=== PATIENT | male | born 1960 | race Caucasian/White ===

== ENCOUNTER 2020-08-03 00:52 | Inpatient (IN) | payer BC, SELFPAY ==
[2020-08-03] VITALS (38 sets, daily range): BP systolic 98–135; BP diastolic 7–95; PULSE 58–71; RESP 12–24; TEMP 36.4–36.9; O2SAT 91–100; BMI 30.8
--- NOTE | ~2020-08-03 | XR_ITS ---
EXAMINATION: XR chest 1V portable DATE: 08/03/2020 01:07 INDICATION: Chest pain. Shortness of breath. ST elevation myocardial infarction. TECHNIQUE: A single frontal view of the chest was obtained. COMPARISON: Chest 2 views 02/21/2015, CT chest 02/21/2015 FINDINGS: There is a diffuse interstitial pattern, consistent with mild pulmonary edema. No pleural e ffusion or pneumothorax. The heart size is normal. IMPRESSION: 1. Mild pulmonary edema. Reviewed, dictated and finalized at location A. IMPRESSION: 1. Mild pulmonary edema.
--- NOTE | 2020-08-03 00:46 | ED.CHESTPAIN ---
HPI - Chest Pain General Chief Complaint: Chest Pain Stated Complaint: CP Source: patient and EMS Mode of arrival: EMS Limitations: no limitations History of Present Illness HPI narrative: Patient is a 59-year-old who presents as a STEMI activation from the field. Patient reportedly with chest pain beginning shortly after midnight, took a full dose aspirin at home, symptoms did not improve, thus EMS was called, EKG done at the scene showed inferior STEMI with ST elevation with reciprocal changes with ST depression aVF in anterior leads. Patient was stable vital signs for transport. Patient presented to the ER awake, alert with stable vital signs, reporting that chest pain began approximately 40 minutes prior to arrival, described as pressure over the central of his chest with radiation into his middle back and bilateral arm pain. Patient states that he had walked into the kitchen, when suddenly the chest pain began causing him to feel sweaty with associated nausea. Patient reports smoking history and history of COPD. He reports family history of cardiac disease, he denies history of [place]. Related Data Allergies Allergy/AdvReac Type Severity Reaction Status Date / Time No Known Allergies Allergy Unknown Verified 07/21/20 16:00 Review of Systems Review of Systems: Narrative: CONSTITUTIONAL: Denies fever, chills, reports feeling diaphoretic CARDIOVASCULAR: Reports chest pain RESPIRATORY: Denies cough or dyspnea. GASTROINTESTINAL: Reports nausea GENITOURINARY: Denies dysuria or hematuria. SKIN: Denies rash or itching. MUSCULOSKELETAL: Reports middle back pain, joint pain, or myalgia. NEUROLOGIC: Denies headache, numbness, or weakness. . [facility] Past Medical History Medical History (Updated 08/03/20 @ 01:02 by Mona Temple MD) COPD (chronic obstructive pulmonary disease) Emphysema of lung Low HDL (under 40) Tobacco dependence Family History Family History Mother Cerebrovascular accident, Onset Age: 23 Patient's mother is Father Family history of heart disease in male family member before age 55, Onset Age: 42 Patient's father is Sibling Patient's brother is in good health Other Family history of arthritis Family history of cardiovascular disease Social History Social History Social History: Smoking packs per day: 1 Smoking cigarettes per day: 20.0 Years smoked: 41 Smoking pack-years: 41.00 Smoking status: Current every day smoker Tobacco type: cigarettes Second hand tobacco smoke exposure: Yes Alcohol intake: never Substance use: never Substance use type: does not use Gender identity (if verbalized by the patient): Male Spiritual care concerns: No Exam Narrative: Exam Narrative: GENERAL: Awake, alert, uncomfortable appearing HEAD: Normocephalic, atraumatic. EYES: PERRLA and EOMI. ENT: Nares clear, no rhinorrhea or epistaxis. Mucous membranes moist. NECK: Supple. CHEST: Mildly tachypneic, hyperventilating, no crackles, no wheezing HEART: Regular rate, sinus rhythm ABDOMEN:Non distended, non tender EXTREMITIES: Normal range of motion. No edema. SKIN: Warm, dry, no rash. NEURO:No focal deficits. Alert and oriented x3 Course Vital Signs Vital signs: Vital Signs Temperature 36.9 C 08/03/20 00:50 Pulse Rate 71 08/03/20 00:50 Respiratory Rate 24 H 08/03/20 00:50 Blood Pressure 135/90 08/03/20 00:50 Pulse Oximetry 98 08/03/20 00:50 Temperature 36.6 C 08/03/20 04:02 Pulse Rate 64 08/03/20 04:02 Respiratory Rate 20 08/03/20 04:02 Blood Pressure 111/71 08/03/20 04:02 Pulse Oximetry 93 08/03/20 04:02 MDM - Chest Pain MDM Narrative Medical decision making narrative: Patient presented to the emergency department as STEMI activation from the field with findings consistent with
--- NOTE | 2020-08-03 00:57 | ECG_ITS ---
Measurements Intervals [place] Rate: 76 P: 40 [place]: 165 QRS: 75 QRSD: 105 T: 91 QT: 336 QTc: 378 Interpretive Statements SINUS RHYTHM INCOMPLETE RIGHT BUNDLE BRANCH BLOCK INFERIOR ST ELEVATION MYOCARDIAL INFARCT- ACUTE POSTERIOR INFARCT, ACUTE BASELINE ARTIFACT- V3-V4 ABNORMAL ECG Electronically Signed On 08-03-2020 8:01:39 CDT by Hernán He D.O.
[2020-08-03 01:06] LABS: Basophils Absolute Auto 0.1 K/mm3 (0.0-0.1); Basophils Percent Auto 0.6 % (0.2-1.2); Eosinophils Absolute Auto 0.3 K/mm3 (0-0.3); Eosinophils Percent Auto 2.2 % (0-4.4); Hematocrit 48.8 % (42.0-52.0); Hemoglobin 16.7 g/dL (14.0-18.0); Immature Granulocyte Absolute 0.05 K/mm3 (0.00-0.031); Immature Granulocyte Percent A 0.3 % (0-0.5); Lymphocytes Absolute Auto 4.03 K/mm3 (0.9-3.2); Lymphocytes Percent Auto 25.7 % (18.3-44.2); Mean Corpuscular HGB Conc 34.2 g/dl (32-36); Mean Corpuscular Hemoglobin 31.7 pg (26-34); Mean Corpuscular Volume 92.8 fl (80-100); Mean Platelet Volume 11.4 fl (7.4-10.4); Monocytes Absolute Auto 0.8 K/mm3 (0.1-0.6); Neutrophils Absolute Auto 10.4 K/mm3 (1.3-6.7); Neutrophils Percent Auto 66.2 % (45.5-73.1); Platelet Count Result 290 k/mm3 (150-375); Red Blood Count 5.26 M/mm3 (4.6-6.20); Red Cell Distribution Width 12.9 % (11.5-14.5); White Blood Count 15.7 K/mm3 (4.5-10.0)
--- NOTE | 2020-08-03 01:07 | PC.NURSE ---
4mg zofran given 0053 4000 units heparin bolus given 0054 2mg morphine given 0056 2mg morphine given 0058
--- NOTE | 2020-08-03 01:15 | PC.NURSE ---
4mg more of morphine given at this time per md verbal orders due to pain 02/23
--- NOTE | 2020-08-03 01:22 | PC.NURSE ---
labs sent down on patient due to lab unreceiving first set.
[2020-08-03 01:37] LABS: INR 1.1; Prothrombin Time 13.7 Seconds (11.1-14.7)
[2020-08-03 01:38] LABS: Partial Thromboplastin Time 69.5 SECONDS (22.3-36.8)
[2020-08-03 01:41] LABS: Alanine Aminotransferase 18 U/L (4-50); Alkaline Phosphatase 104 U/L (38-126); Anion Gap 7 mmol/L (8-16); Aspartate Amino Transferase 32 U/L (17-59); Bilirubin,Total 0.5 mg/dL (0.2-1.3); Blood Urea Nitrogen 17 mg/dL (9-20); Calcium 9.2 mg/dL (8.4-10.2); Carbon Dioxide 26 mmol/L (22-30); Chloride 103 mmol/L (98-107); Cholesterol 139 mg/dL (0-200); Estimated Glomerular Filt Rate > 60; Glucose 141 mg/dL (75-110); HDL Direct 30 mg/dL; Sodium 136 mmol/L (137-145); Triglycerides 215 mg/dL (<150)
[2020-08-03 01:53] LABS: LDL Cholesterol Direct 88 mg/dL
--- NOTE | 2020-08-03 02:22 | WPDCARDPROC ---
Cardiac Cath Procedure Note Date of procedure:: 08/03/20 Performing physician:: Garrick Santoyo MD Indication:: acute inferior wall infarction Brief clinical history:: 59-year-old man presenting in the middle of the night with ischemic chest pain that began at home awakening him from sleep. ECG in the field was diagnostic of acute inferior wall a.m. MO. STEMI protocol was activated. No previous cardiac history Procedure Procedure performed:: emergency coronary angiography emergency PCI to proximal RCA left ventriculography Sedation/Medication given:: no additional sedation given in the seed laboratory assistant Access site:: right femoral artery Estimated blood loss:: 15-20 cc Procedure note:: patient was brought to the cardiac catheterization lab in the emergency setting described above. The right femoral triangle was prepared in the usual fashion. Lidocaine was injected locally for a anesthesia. The right femoral artery was then punctured using the modified Seldinger technique and a 6 Moldovan vascular sheath was placed. After this I used a 5 Moldovan FL4 catheter to engage inject the left coronary artery in multiple projections. After this a 6 Moldovan JR4 guiding catheter was used to inject the right coronary artery. Following this PCI of the right coronary artery was carried out as detailed below. Prior to PCI the patient received Brilinta 180 mg and was given a bolus and infusion of Angiomax for systemic anticoagulation. During the procedure I also elected to start Integrilin with double bolus and maintenance IV infusion. The patient following this underwent PCI of the RCA successfully. The left ventricle was then injected and left-sided hemodynamics were documented using a 5 Moldovan angled pigtail catheter. At the end of the procedure the sheath was sutured into position the patient was taken down to the ICU in stable condition Findings:: the left ventricle is modestly enlarged the mid to basal segments of the inferior wall are akinetic the global ejection fraction is 45% the left main coronary artery is widely patent the left anterior descending is a wbgnqsnh-[id number]-edtya caliber vessel smooth and angiographically no normal down to the apex including its branches. The circumflex is a large caliber vessel giving rise to marginal branches which are smooth and angiographically normal, somewhat tortuous right coronary artery is a large artery dominant to the posterior circulation which is 100% occluded in the 1st portion about 10 mm after the ostium. The RCA was engaged using the 6 Moldovan JR4 guiding catheter. A 0.014 BMW wire was used to cross the occlusion and the wire advanced into the distal RCA in artery out into the RPL system. I then pre-dilated the vessel with a 2.5 x 20 mm emerge PTCA balloon followed by 3.5 x 20 mm emerge balloon. After this the vessel was patent but the area of disease was relatively long with CAROL 3 flow into the distal RCA. There was angiographic evidence of visible thrombus embolizing from the site of the target lesion distally into the PDA and PL branches. Following this I deployed a 4 x 30 mm Orsiro drug-eluting stent at the site of the target lesion covering the entire area of disease with some overlap proximally and distally. At the end of the stent plan the proximal RCA was widely patent no residual stenosis disruption dissection. at the end of the procedure for several minutes the patient did have asymptomatic accelerated idioventricular rhythm which resolved without treatment Conclusion:: 1. Acute inferior wall myocardial infarction due to abrupt thrombotic occlusion of the large dominant RCA 2. non disease left coronary artery 3. large area of infero posterior akinesia and global ejection fraction 45% 4. successful PCI of the RCA occlusion with balloon pre dilatation and then deployment of a 4 x 30 mm Orsiro drug-eluting stent with a nice anatomical result 5. distal thrombus embolization to the RPD
--- NOTE | 2020-08-03 02:31 | PM.IMHP ---
H&P: HPI History of Present Illness Date/Time: 08/03/20 02:31 Chief complaint: STEMI Narrative: Meek Owens is a 59 year old male without previous significant cardiac history who presents this evening with an acute inferior wall infarction. The patient was asleep in bed and was awakened with retrosternal pressure-like chest pain. He recognized this is probably a serious matter and took a dose of aspirin in the at home and called 911. ECG in the field was diagnostic of an acute inferior wall infarction. Patient reports no previous history of exertional chest pain prior to this. He reports some evidence of dyslipidemia and a family history of premature coronary disease in his father and paternal grandfather Review of Systems Review of Systems: ROS unobtainable: Yes unobtainable due to medical condition PMFSH Past Medical History Medical History (Updated 08/03/20 @ 01:02 by Mona Temple MD) COPD (chronic obstructive pulmonary disease) Emphysema of lung Low HDL (under 40) Tobacco dependence Family History Family History Mother Cerebrovascular accident, Onset Age: 23 Patient's mother is Father Family history of heart disease in male family member before age 55, Onset Age: 42 Patient's father is Sibling Patient's brother is in good health Other Family history of arthritis Family history of cardiovascular disease Social History Social History Social History: Smoking packs per day: 1.5 Smoking cigarettes per day: 30.0 Smoking status: Current every day smoker Tobacco type: cigarettes Second hand tobacco smoke exposure: Yes Alcohol intake: never Substance use: never Substance use type: does not use Gender identity (if verbalized by the patient): Male Meds Home Medications and Allergies Home Medications Medication Instructions Recorded Confirmed Type varenicline 0.5 mg (11)-1 mg (42) See Rx Instructions PO PER PKG DIR 07/14/20 07/29/20 Rx tablets in a dose pack #53 each Allergies Allergy/AdvReac Type Severity Reaction Status Date / Time No Known Allergies Allergy Unknown Verified 07/21/20 16:00 Vital Signs Vital Signs - 24 hr 08/03/20 00:50 08/03/20 01:14 08/03/20 01:24 Temperature 36.9 C Pulse Rate 71 69 65 Respiratory Rate 24 H 13 12 Blood Pressure 135/90 129/89 129/89 Pulse Oximetry 98 94 99 Exam Const: General: in distress and uncomfortable Other: 59-year-old man reporting 9/10 chest pain HENMT: Mouth: Yes moist mucous membranes Eyes: Sclera: sclerae normal Pupils: Equal, round and reactive pupils present Neck: Neck: supple and no JVD Thyroid: thyroid normal Resp: Effort & Inspection: normal respiratory effort Auscultation: clear to auscultation bilaterally Cardio: Rate: regular rate Rhythm: regular rhythm Other: S4 is evident GI: GI Palp: Yes Soft to palpation Auscultation: normal bowel sounds Skin: General skin exam: normal color Neuro: Cognition (Neuro): normal cognition Extrem: General: normal to inspection Psych: Mental Status: mental status grossly normal H&P: Results Labs Labs: Short CBC 08/03/20 Range/Units 01:00 WBC 15.7 H (4.5-10.0) K/mm3 Hgb 16.7 (14.0-18.0) g/dL Hct 48.8 (42.0-52.0) % Plt Count 290 (150-375) k/mm3 BMP 08/03/20 08/03/20 01:00 01:21 Sodium Cancelled 136 L Potassium Cancelled 4.0 Chloride Cancelled 103 Carbon Dioxide Cancelled 26 BUN Cancelled 17 Creatinine Cancelled 1.00 Glucose Cancelled 141 H Calcium Cancelled 9.2 Cardiac Enzymes 08/03/20 Range/Units 01:00 Troponin I 1.950 H* (0.000-0.034) ng/mL Liver Function 08/03/20 08/03/20 Range/Units 01:00 01:21 Total Bilirubin Cancelled 0.5 AST Cancelled 32 ALT Cancelled 18 Alkaline Phosphatase
--- NOTE | 2020-08-03 02:40 | ADMGEN ---
This patient, Meek Owens, was admitted to Intensive Care Unit-9. Patient/family oriented to hospital policies and general routines including ID bracelet, bed and alarms, visiting hours, pain management, procedures, bathroom and other care routines, personal items, smoking policy, room service/diet, and visiting hours. Information on how to activate the Rapid Response Team has been discussed. Patient/Family are encouraged to report perceived risks to care and to ask questions if they do not understand what they are told or what they should do.
--- NOTE | 2020-08-03 02:44 | ECG_ITS ---
Measurements Intervals [place] Rate: 67 P: 61 ME: 162 QRS: 31 QRSD: 102 T: -31 QT: 371 QTc: 393 Interpretive Statements SINUS RHYTHM INCOMPLETE RIGHT BUNDLE BRANCH BLOCK INFERIOR MYOCARDIAL INFARCTION, PROBABLY RECENT BASELINE ARTIFACT- V4 ABNORMAL ECG Electronically Signed On 08-03-2020 13:24:53 CDT by Hernán He D.O.
[2020-08-03] MEDS: SODIUM CHLORIDE 0.9% IV 1,000 ML 125 ML IV CONT (04:11)
[2020-08-03] MEDS: EPTIFIBATIDE 0.75 MG/ML 75 MG/100 ML VIAL 17.4 MG IV CONT ×3 (07:16→19:13)
[2020-08-03] MEDS: MORPHINE SULFATE (*CRX) 2 MG/ML INJ IV PUSH (07:37)
[2020-08-03] MEDS: METOPROLOL TARTRATE 25 MG TABLET PO ×2 (08:13→20:22)
[2020-08-03] MEDS: ASPIRIN 81 MG CHEWABLE TABLET PO (08:13)
[2020-08-03] MEDS: LOSARTAN POTASSIUM 12.5 MG TABLET PO (08:13)
[2020-08-03] MEDS: ROSUVASTATIN 10 MG TABLET 20 MG PO (08:14)
[2020-08-03] MEDS: TICAGRELOR 90 MG TABLET PO ×2 (08:14→20:22)
[2020-08-03] MEDS: LIDOCAINE 5% PATCH 1 PATCH TRANSDERM (08:41)
--- NOTE | 2020-08-03 09:30 | WPDCNINT ---
Assessment and Plan Assessment and plan (1) ST elevation (STEMI) myocardial infarction: Code(s): I21.3 - ST elevation (STEMI) myocardial infarction of unspecified site Status: Acute Assessment and Plan: patient presented with chest pain, EMS alerted a code STEMI, patient was taken emergently to the wastewater analyst lab analyst where he was found 100% occlusion of the 1st part of the RCA, status post RIN x1. EF 45% with akinetic inferior wall - patient currently on interrogated infusion for 18 hours - continue metoprolol, Brilinta, rosuvastatin, metoprolol, losartan (2) COPD (chronic obstructive pulmonary disease): Code(s): J44.9 - Chronic obstructive pulmonary disease, unspecified Status: Acute Assessment and Plan: p.r.n. bronchodilators (3) Tobacco dependence: Code(s): F17.200 - Nicotine dependence, unspecified, uncomplicated Status: Acute Assessment and Plan: discussed patient regarding tobacco abuse and counseled on cessation Additional Plan discussed with patient and updated with his condition and plan of care. I ordered morphine and Tylenol for his back pain along with lidocaine patch. code status: Full code critical care time spent: 42 Minutes Due to a high probability of clinically significant, life threatening deterioration, the patient required my highest level of preparedness to intervene emergently and I personally spent this critical care time directly and personally managing the patient. This critical care time included obtaining a history; examining the patient; pulse oximetry; ordering and review of studies; arranging urgent treatment with development of a management plan; evaluation of patient's response to treatment; frequent reassessment; and discussions with other providers. It was exclusive of separately billable procedures and treating other patients and teaching time. Please see Assessment and Plan section and the rest of the note for further information on patient assessment and treatment Sample Color Maker Consult Note Consult date: 08/03/20 Time Seen: 06:58 Reason for consult: STEMI with acute inferior wall infarction status post RIN x1 to RCA HPI: Meek Owens is a 59 year old male with past medical history of COPD, tobacco dependence, low HDL presented the ED with complains of chest pain associated with nausea, shortness of breath and radiation into his middle back in bilateral upper arms. Patient also was diaphoretic. Patient called EMS an EKG showed inferior ST elevation with reciprocal changes. patient was taken to the wastewater analyst lab analyst where he was found to have 100% occlusion in the 1st portion. Status post RIN x1 to the lesion in RCA. EF was 45% with akinesis of the inferior wall. Patient was transferred the ICU on Integrilin infusion patient seen and examined this morning, complains of back pain, just uncomfortable laying on his back. Patient is on Integrilin infusion. Hemodynamically stable, adequate urine output, afebrile. Patient denies any chest pain, shortness of breath, abdominal pain, nausea Or vomiting. Patient smokes packet per day, denies any alcohol or illicit drug use Review of Systems Review of Systems: All systems reviewed & are unremarkable except as noted in HPI and below PMFSH Past Medical History Medical History (Updated 08/03/20 @ 01:02 by Mona Temple MD) COPD (chronic obstructive pulmonary disease) Emphysema of lung Low HDL (under 40) Tobacco dependence Family History Family History Mother Cerebrovascular accident, Onset Age: 23 Patient's mother is Father Family history of heart disease in male family member before age 55, Onset Age: 42 Patient's father is Sibling Patient's brother is in good health Other Family history of arthritis Family history of cardiovascular disease Social History Social History (Reviewed
[2020-08-03] MEDS: ACETAMINOPHEN 500 MG TABLET 1000 MG PO ×2 (12:47→23:17)
--- NOTE | 2020-08-03 21:59 | PC.NURSE ---
This patient, Meek Owens, was transferred to [[id number] ] on 08/03/20 at 2145. Personal belongings sent with patient. Report given to [Jen. Baker ]. Appropriate documentation sent with patient.
--- NOTE | 2020-08-03 22:43 | PC.NURSE ---
This patient, Meek Owens, was received from ICU-9 on 08/03/20 at 2145. Personal belongings list checked and signed. Patient/family oriented to unit policies and routines
[2020-08-04] VITALS (19 sets, daily range): BP systolic 99–127; BP diastolic 56–80; PULSE 54–86; RESP 18–98; TEMP 35.7–36.6; O2SAT 20–98
--- NOTE | 2020-08-04 05:11 | ECG_ITS ---
Measurements Intervals [place] Rate: 64 P: 71 DC: 147 QRS: -24 QRSD: 101 T: -58 QT: 420 QTc: 434 Interpretive Statements SINUS RHYTHM INCOMPLETE RIGHT BUNDLE BRANCH BLOCK INFERIOR MYOCARDIAL INFARCTION, PROBABLY RECENT BASELINE WANDER- II, III, V2 ABNORMAL ECG Electronically Signed On 08-04-2020 8:58:13 CDT by Hernán He D.O.
[2020-08-04 05:25] LABS: Basophils Percent Auto 0.3 % (0.2-1.2); Eosinophils Absolute Auto 0.2 K/mm3 (0-0.3); Eosinophils Percent Auto 2.7 % (0-4.4); Hematocrit 45.1 % (42.0-52.0); Hemoglobin 15.2 g/dL (14.0-18.0); Immature Granulocyte Absolute 0.02 K/mm3 (0.00-0.031); Immature Granulocyte Percent A 0.2 % (0-0.5); Lymphocytes Absolute Auto 2.73 K/mm3 (0.9-3.2); Lymphocytes Percent Auto 30.7 % (18.3-44.2); Mean Corpuscular HGB Conc 33.7 g/dl (32-36); Mean Corpuscular Hemoglobin 30.7 pg (26-34); Mean Corpuscular Volume 91.1 fl (80-100); Mean Platelet Volume 11.5 fl (7.4-10.4); Monocytes Absolute Auto 0.6 K/mm3 (0.1-0.6); Monocytes Percent Auto 6.4 % (2.6-8.5); Neutrophils Absolute Auto 5.3 K/mm3 (1.3-6.7); Neutrophils Percent Auto 59.7 % (45.5-73.1); Platelet Count Result 245 k/mm3 (150-375); Red Blood Count 4.95 M/mm3 (4.6-6.20); Red Cell Distribution Width 12.8 % (11.5-14.5); White Blood Count 8.9 K/mm3 (4.5-10.0)
[2020-08-04 05:57] LABS: Anion Gap 6 mmol/L (8-16); Blood Urea Nitrogen 10 mg/dL (9-20); Carbon Dioxide 27 mmol/L (22-30); Chloride 108 mmol/L (98-107); Estimated CRCL calculation 119 ml/min; Estimated Glomerular Filt Rate > 60; Glucose 97 mg/dL (75-110); Magnesium 2.1 mg/dL (1.6-2.3); Phosphorus 3.1 mg/dL (2.5-4.5); Potassium 3.9 mmol/L (3.4-5.0); Sodium 141 mmol/L (137-145)
[2020-08-04] MEDS: METOPROLOL TARTRATE 25 MG TABLET PO ×2 (10:28→20:05)
[2020-08-04] MEDS: ASPIRIN 81 MG CHEWABLE TABLET PO (10:28)
[2020-08-04] MEDS: ROSUVASTATIN 10 MG TABLET 20 MG PO (10:28)
[2020-08-04] MEDS: TICAGRELOR 90 MG TABLET PO ×2 (10:28→20:05)
[2020-08-04] MEDS: LOSARTAN POTASSIUM 12.5 MG TABLET PO (10:29)
--- NOTE | 2020-08-04 10:47 | PM.PNCARD ---
Progress Note: A&P Assessment and Plan (1) ST elevation (STEMI) myocardial infarction: Code(s): I21.3 - ST elevation (STEMI) myocardial infarction of unspecified site Status: Acute Assessment and Plan: 08/03/2020 cardiac catheterization: Acute inferior wall myocardial infarction due to abrupt thrombotic occlusion of the large dominant RCA Non disease left coronary artery. Large area of infero posterior akinesia and global ejection fraction 45%. Proceeded on to successful PCI of the RCA occlusion with balloon pre dilatation and then deployment of a 4 x 30 mm Orsiro drug-eluting stent with a nice anatomical result. Distal thrombus embolization to the RPDA and RPL branches following recanalization lutheran of flow in the proximal RCA. He received intravenous Integrilin as well as an additional bag of Angiomax following this PCI for this reason. At the end of the procedure he had several minutes of asymptomatic accelerated idioventricular rhythm which resolved without treatment No complaints of any chest discomfort. Denied shortness of breath or lightheadedness. Has been up in room. Right groin site without swelling or bleeding. No femoral bruit. Distal pulses intact. Telemetry revealed a 5 beat run of idioventricular rhythm 08/04/2020 at 01:09. Otherwise having occasional PVCs. Potassium 3.9. Magnesium 2.1. Continue aspirin, Brilinta, Rosuvastatin, Metoprolol tartrate and losartan. Discussion regarding his cholesterol numbers. He also had this drawn 07/17/2020. Results: Total cholesterol 125, triglyceride 72, HDL 35, LDL calculated 75. The cholesterol drawn at 0121 08/03/2020 was not a full 12 hour fasting specimen. Will get echo to evaluate LV function post intervention. If remains stable anticipate discharge tomorrow. (2) Tobacco dependence: Code(s): F17.200 - Nicotine dependence, unspecified, uncomplicated Status: Acute Assessment and Plan: smoking cessation discussed. Additional Plan Increase ambulation. Plan discussed with Dr. Santoyo [id number] 08/04/2020 Subjective Date/time seen: 08/04/20 10:47 Interval history: Follow-up for: Inferior ST-elevation myocardial infarction Date of service: 08/04/2020 Subjective: Denied chest discomfort, shortness of breath, lightheadedness or palpitations. Disappointed that he is not going home today. Review of Systems Constitutional: Constitutional: Denies fatigue, Denies lethargy and Denies weakness Eyes: Eyes: Denies blind spots and Denies blurry vision ENT: Reports Normal hearing present and Denies dizziness Cardiovascular: Cardiovascular: Denies leg edema, Denies lightheadedness, Denies dyspnea, Denies dyspnea on exertion, Denies orthopnea and Denies paroxysmal nocturnal dyspnea Respiratory: Respiratory: Denies cough, Denies dyspnea, Denies dyspnea on exertion and Denies wheezing Musculoskeletal: Musculoskeletal: Reports back pain ( Chronic) and Denies neck pain Integumentary/Breasts: Skin/Breast: Denies erythema, Denies rash and Denies unusual bruising Neurologic: Denies Abnormal speech present and Denies headache(s) Psychiatric: Psychiatric: Denies anxiety and Denies depression Endocrine: Endocrine: Denies fatigue Hematologic/Lymphatic: Hematologic/Lymphatic: Denies easy bleeding and Denies easy bruising Allergic/Immunologic: Allergic/Immunologic: Denies throat swelling and Denies wheezing Exam Const: General: cooperative and comfortable Nutritional Appearance: overweight Orientation/consciousness: patient oriented x3 Limitations: no limitations HENMT: Mouth: Yes moist mucous membranes Eyes: Sclera: sclerae normal Pupils: Equal, round and reactive pupils present Neck: Neck: supple and no JVD Resp: Effort & Inspection: normal respiratory effort Auscultation: crackles ( bilateral bases left greater than right) Cardio: Rate: regular rate Rhythm: regular rhythm Other: S4
--- NOTE | 2020-08-04 12:00 | ECHO_ITS ---
Patient Info Name: Meek Owens Age: 59 years : 1960 Gender: Male Ht: 74 in Wt: 249 lbs BSA: 2.46 m2 HR: 60 bpm BP: 119 / 70 mmHg Heart Rhythm: Sinus Rhythm Technical Quality: Good Exam Date: 08/04/2020 11:47 AM Exam Location: [facility] Patient Status: Inpatient Admit Date: 08/03/2020 Staff Ordering Physician: Tita Aponte APRN It Generalist: Chris Weber RDCS Attending Provider: Garrick Santoyo MD Referring Physician: Fadi REDD; Exam Type: CA echo doppler color flow Study Info Indications I22.1 - Subsequent ST elevation (STEMI) myocardial infarction of inferior wall Complete two-dimensional, color flow and Doppler transthoracic echocardiogram is performed. Strain analysis performed. History/Risk Factors STEMI; COPD, mild pulmonary edema, chest pain. Summary 1. Complete two-dimensional, color flow and Doppler transthoracic echocardiogram is performed. 2. Left ventricular chamber dimension is normal. 3. Left ventricular systolic function is mildly reduced, estimated at 45-50%. 4. The inferior wall is severely hypodynamic but not akinetic. 5. No valve lesions seen. Left Ventricle Left ventricular chamber dimension is normal. Left ventricular systolic function is mildly reduced, estimated at 45-50%. The left ventricular diastolic function is normal. The inferior wall is severely hypodynamic but not akinetic. Right Ventricle Right ventricular chamber dimension is normal. Left Atria Left atrial chamber dimension is normal. Right Atria Right atrial chamber dimension is normal. Aortic Valve The aortic valve is normal. Pulmonic Valve The pulmonic valve is not well visualized. Mitral Valve The mitral valve has normal leaflets. Tricuspid Valve The tricuspid valve leaflets are normal. Pericardium/Pleural The pericardium appears normal. Aorta The aortic root size at the sinus of Valsalva is normal. Left Ventricular Outflow Tract Name Value Normal LVOT 2D LVOT Diameter 2.0 cm LVOT Doppler LVOT Peak Gradient 3 mmHg LVOT Mean Gradient 1 mmHg LVOT VTI 16 cm LVOT VTI/AV VTI Ratio 0.9 LVOT Stroke Volume 50 ml LVOT CO 2.8 l/min LVOT CI 1.1 l/min/m2 Mitral Valve Name Value Normal MV Doppler MV Decel [place] 138 cm/s2 MV PHT 108 ms MV Area (PHT) 2.0 cm2 4.0-5.0 MV Diastolic Function MV E Peak Velocity 51 cm/s MV A Peak Velocity 56 cm/s MV E/A
--- NOTE | 2020-08-04 20:13 | PC.NURSE ---
This patient, Meek Owens, was transferred to [[id number] ] on 08/04/20 at 2013. Personal belongings sent with patient. Report given to [Brigida daniel]. Appropriate documentation sent with patient.
--- NOTE | 2020-08-04 20:21 | PC.NURSE ---
RECEIVED PT PER WHEELCHAIR FROM IMU.
[2020-08-04] MEDS: ACETAMINOPHEN 500 MG TABLET 1000 MG PO (20:23)
[2020-08-05] VITALS: BP 98/45; PULSE 53; PULSE 54; RESP 22; TEMP 36.6; O2SAT 100
[2020-08-05 04:00] VITALS: BP 110/68; PULSE 54; PULSE 63; RESP 22; TEMP 36.6; O2SAT 100
[2020-08-05 08:00] VITALS: PULSE 64
[2020-08-05] MEDS: ASPIRIN 81 MG CHEWABLE TABLET PO (09:00)
[2020-08-05 09:01] VITALS: PULSE 68
[2020-08-05] MEDS: METOPROLOL TARTRATE 25 MG TABLET PO (09:01)
[2020-08-05] MEDS: LOSARTAN POTASSIUM 12.5 MG TABLET PO (09:01)
[2020-08-05] MEDS: ROSUVASTATIN 10 MG TABLET 20 MG PO (09:01)
[2020-08-05] MEDS: TICAGRELOR 90 MG TABLET PO (09:02)
[2020-08-05 09:15] VITALS: BP 117/94; PULSE 64; RESP 20; TEMP 36.6; O2SAT 94
--- NOTE | 2020-08-05 09:25 | PM.DS ---
DS: Admitting Diagnosis Admitting Diagnosis Admitting Diagnosis: STEMI DS: Discharge Diagnosis Discharge Diagnosis (1) ST elevation (STEMI) myocardial infarction: Code(s): I21.3 - ST elevation (STEMI) myocardial infarction of unspecified site Status: Acute Assessment and Plan: 08/03/2020 cardiac catheterization: Acute inferior wall myocardial infarction due to abrupt thrombotic occlusion of the large dominant RCA Non disease left coronary artery. Large area of infero posterior akinesia and global ejection fraction 45%. Proceeded on to successful PCI of the RCA occlusion with balloon pre dilatation and then deployment of a 4 x 30 mm Orsiro drug-eluting stent with a nice anatomical result. Distal thrombus embolization to the RPDA and RPL branches following recanalization amish of flow in the proximal RCA. He received intravenous Integrilin as well as an additional bag of Angiomax following this PCI for this reason. At the end of the procedure he had several minutes of asymptomatic accelerated idioventricular rhythm which resolved without treatment Feeling well. Denied chest discomfort, shortness of breath, lightheadedness or palpitations has been up and ambulating in the halls as well as in his room. 5 beat run of nonsustained ventricular tachycardia which was asymptomatic. Echocardiogram 08/04/2020:Left ventricular chamber dimension is normal. Left ventricular systolic function is mildly reduced, estimated at 45-50%. The inferior wall is severely hypodynamic but not akinetic. No valve lesions seen. (2) Tobacco dependence: Code(s): F17.200 - Nicotine dependence, unspecified, uncomplicated Status: Acute Assessment and Plan: Smoking cessation discussed. Can resume Chantix if desired. DS: Summary Hospital Course Reason for hospitalization: chest pain STEMI -inferior Hospital Course: 59-year-old male that presented to the hospital via EMS with inferior ST-elevation myocardial infarction. He was taken emergently to the cardiac catheterization lab by Dr. Santoyo. PCI was performed of the right coronary artery. At the end of the procedure he had idioventricular rhythm that was self-limiting. He was started on aspirin, Brilinta, losartan, metoprolol tartrate and rosuvastatin. The cholesterol panel that was drawn at the time of his admission was not a good 12 hour fasting from his evening meal. He was monitored in the ICU and then transferred to the IMU. He had one 5 beat run of idioventricular rhythm. Right groin site without swelling or bleeding. No femoral bruit. Distal pulses intact. The lipid panel from 07/16/2020 was reviewed with him. Blood pressure is soft but he is tolerating Metoprolol tartrate 25 mg every 12 hours as well as losartan 12.5 mg daily. He has had no chest discomfort, shortness of breath, lightheadedness or palpitations. He has been ambulating in the [place] as well as up in his room. Echocardiogram 08/04/2020 reveals ejection fraction 45-50% with severely hypo dynamic but not akinetic inferior wall. He had one 5 beat run of nonsustained ventricular tachycardia that was not symptomatic. Due to soft blood pressure and heart rate not able to increase his beta-herson any further. He was given the discount card for the Brilinta. He was discharged home in stable and pain-free condition. Discharge was reviewed with Dr. Santoyo. Time spent discussing smoking cessation with patient: 3 to 10 minutes Time Spent with Patient Time attestation: Total time spent providing and/or coordinating discharge services: 25 minutes in the room discussing medications, activity restrictions, results of the echocardiogram and what ejection fraction is, follow-up in the office and exam. 10 minutes to do discharge orders. 10 minutes to do discharge summary. Total time: 45 minutes Exam Const: General: coop
== END 2020-08-05 11:08 | disposition home or self-care (01) | DRG 247 ==
LOC: ANHED 00:55 → ANHICU 01:13 → ANHIMU 21:45 → ANH2MED 08-04 20:14
PROVIDERS: Internal Medicine; Admitting Provider Specialist; Emergency Provider Emergency Medicine; PCP Family Medicine; Visit Provider Nurse Practitioner Adult Health
PROC: 4A023N7 Measurement of Cardiac Sampling and Pressure, Left Heart, Percutaneous Approach (ICD-10-PCS; CPT 93452; principal; 2020-08-03 01:10)
PROC: 027034Z Dilation of Coronary Artery, One Artery with Drug-eluting Intraluminal Device, Percutaneous Approach (ICD-10-PCS; 2020-08-03 01:10)
DX: I21.19 ST elevation (STEMI) myocardial infarction involving other coronary artery of inferior wall (principal); J43.9 Emphysema, unspecified; Z20.828 Contact with and (suspected) exposure to other viral communicable diseases; F17.210 Nicotine dependence, cigarettes, uncomplicated; Z23 Encounter for immunization
CPT/HCPCS: 36415; 71045; 80048; 80053; 80061; 83735; 84100; 84484; 85025; 85610; 85730; 86850; 86900; 86901; 90471; 90653; 93005; 93306; 93458; 96374; 96375; 99291; A9270; C1725; C1874; C1887; C9606; G0008; J0583; J1327; J1644; J2250; J2270; J2405; J3010; J7030; J7040

== ENCOUNTER → 2020-08-25 08:54 | Outpatient (REF) | payer BC, SELFPAY | LOC: ANHLAB 08:54 | PROVIDERS: PCP Family Medicine; Visit Provider Nurse Practitioner | DX: C44.529 Squamous cell carcinoma of skin of other part of trunk (principal) | CPT/HCPCS: 88305; 88331 ==

== ENCOUNTER → 2021-09-14 13:59 | Outpatient (REF) | payer BC, SELFPAY | LOC: ANHLAB 13:59 | PROVIDERS: PCP Family Medicine; Visit Provider Nurse Practitioner | DX: C44.519 Basal cell carcinoma of skin of other part of trunk (principal) | CPT/HCPCS: 88305 ==

== ENCOUNTER → 2021-11-09 07:06 | Outpatient (REF) | payer BC, SELFPAY | LOC: ANHLAB 07:06 | PROVIDERS: PCP Family Medicine; Visit Provider Nurse Practitioner | DX: C44.519 Basal cell carcinoma of skin of other part of trunk (principal) | CPT/HCPCS: 88305; 88331 ==

== ENCOUNTER 2022-02-19 12:55 | Outpatient (CLI) | payer BC, SELFPAY ==
--- NOTE | ~2022-02-19 | CT_ITS ---
EXAMINATION: CT lung screening DATE: 02/19/2022 13:13 INDICATION: Personal history of nicotine dependence, current smoker with 61 pack year history TECHNIQUE: Computed tomography (CT) of the chest was performed without intravenous contrast. The dose -length product (DLP) was 208.57 mGy-cm. Automated exposure control and iterative reconstruction tech [employer] were employed. COMPARISON: 02/21/2015 FINDINGS: The lungs are free of acute opacities. There is mild emphysema. There is a stable pleural-b ased nodule of the right upper lobe. No new or suspicious pulmonary nodules are identified. There is chronic mild mediastinal lymphadenopathy.. The heart size is normal. A coronary artery stent is noted . 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 IMPRESSION: 1. Lung-RADS category 2: Benign appearance or behavior. Continue annual screening with noncontrast lo w-dose chest CT in 12 months. Reviewed, dictated and finalized at location B. IMPRESSION: 1. Lung-RADS category 2: Benign appearance or behavior. Continue annual screeni ng with noncontrast low-dose chest CT in 12 months.
== END 2022-02-19 12:56 | disposition home or self-care (01) ==
LOC: ANHIMG 12:58
PROVIDERS: PCP Family Medicine; Visit Provider Nurse Practitioner Gerontology
DX: Z12.2 Encounter for screening for malignant neoplasm of respiratory organs (principal); F17.200 Nicotine dependence, unspecified, uncomplicated
CPT/HCPCS: 71271

== ENCOUNTER 2022-04-13 01:23 | Day surgery (SDC) | payer BC, SELFPAY ==
[2022-04-07 13:39] VITALS: BMI 30.8
[2022-04-13 09:03] VITALS: BP 112/74; PULSE 76; RESP 20; TEMP 36.7; O2SAT 100
[2022-04-13] MEDS: LACTATED RINGERS 1,000 ML 150 ML IV CONT (09:11)
--- NOTE | 2022-04-13 09:39 | WPDANESEPPF ---
Anes - Initial Pre Proc Eval Procedure: Operation Date: 04/13/22 10:30 Proposed Procedures p Screening Colonoscopy - Michael Tate MD Date/Time: 04/13/22 09:39 Surgeon: Michael Tate MD Pre Op Diagnosis: neoplasm screening Patient Data Age: 61 Gender: M Height: 1.88 m Weight: 109.6 kg Last Vital Signs Temp 98.1 F 04/13/22 09:03 Pulse 76 04/13/22 09:03 Resp 20 04/13/22 09:03 BP 112/74 04/13/22 09:03 Pulse Ox 100 04/13/22 09:03 O2 Del Method Room Air 04/13/22 09:03 Allergies Allergy/AdvReac Type Severity Reaction Status Date / Time No Known Allergies Allergy Unknown Verified 04/13/22 09:02 Home Medications Medication Instructions Recorded Confirmed Type aspirin 81 mg chewable tablet 81 mg PO DAILY #30 tabs 08/05/20 04/07/22 Rx (Children's Aspirin) rosuvastatin 20 mg tablet 20 mg PO DAILY #30 tabs 08/05/20 04/07/22 Rx clopidogrel 75 mg tablet 75 mg PO DAILY 09/14/21 04/13/22 History azelastine 205.5 mcg (0.15 %) 1 spray intranasal DAILY #30 mL 02/09/22 04/07/22 Rx nasal spray metoprolol tartrate 25 mg tablet 25 mg PO DAILY 04/07/22 04/07/22 History Patient hx anesthesia problems: none Family hx anesthesia problems: none Results Review: All pre-operative results and documents have been reviewed as part of the pre-operative evaluation. [facility] Past Medical History Medical History (Updated 03/11/22 @ 09:37 by Barbara Aguirre) COPD (chronic obstructive pulmonary disease) Emphysema of lung Low HDL (under 40) Tobacco dependence Family History Family History Mother Cerebrovascular accident, Onset Age: 23 Patient's mother is Father Family history of heart disease in male family member before age 55, Onset Age: 42 Patient's father is Sibling Patient's brother is in good health Other Family history of arthritis Family history of cardiovascular disease Social History Social History Social History: Smoking packs per day: 1.5 Smoking cigarettes per day: 30.0 Years smoked: 41 Smoking pack-years: 61.50 Smoking status: Current every day smoker Tobacco type: cigarettes Second hand tobacco smoke exposure: Yes Alcohol intake: never Substance use: never Substance use type: does not use Living arrangements: with family Gender identity (if verbalized by the patient): Male Sexual Orientation (if Verbalized by the Patient): Straight or Heterosexual Spiritual care concerns: No Anes - Eval Final PreProcedure Day of Procedure 04/13/22 09:39 Patient weight: obese Heart: regular rate and rhythm Lungs: clear to auscultation Airway: Mallampati scale class II Neurological: alert and oriented Last oral intake: >/= 8 hours ASA classification: III Emergent: no Anesthetic plan: proceed Anesthesia type and monitoring: general GIVS and standard monitoring Results Review: All pre-operative results and documents have been reviewed as part of the pre-operative evaluation. Informed Consent: The patient's anesthetic plan and its attendant risks and benefits were discussed with the patient/family/POA. Questions were solicited and answers provided to the satisfaction of the patient/family/POA.
--- NOTE | 2022-04-13 09:47 | PM.HPGS ---
History of Present Illness History of Present Illness Consent: Risks, benefits, and alternatives have been discussed and questions answered. Patient agrees to proceed with procedure. Chief complaint: neoplasm screening Narrative: Meek Owens is a 61 year old male here for screening colonoscopy, last one in 2012 Review of Systems Constitutional: Constitutional: Denies headache(s) and Denies weakness Eyes: Eyes: Denies blurry vision ENT: Reports Normal hearing present, Denies headache(s) and Denies neck pain Cardiovascular: Cardiovascular: Denies chest pain and Denies dyspnea Respiratory: Respiratory: Denies dyspnea Gastrointestinal: Gastrointestinal: Reports no additional gastrointestinal complaints Genitourinary: Genitourinary: Denies dysuria Musculoskeletal: Musculoskeletal: Denies neck pain Integumentary/Breasts: Skin/Breast: Denies dry skin Neurologic: Reports Normal hearing present, Denies headache(s) and Denies weakness Psychiatric: Psychiatric: Denies anxiety Endocrine: Endocrine: Denies change in body appearance Hematologic/Lymphatic: Hematologic/Lymphatic: Denies easy bleeding Allergic/Immunologic: Allergic/Immunologic: Denies urticaria PMFSH Past Medical History Medical History (Updated 03/11/22 @ 09:37 by Barbara Aguirre) COPD (chronic obstructive pulmonary disease) Emphysema of lung Low HDL (under 40) Tobacco dependence Family History Family History Mother Cerebrovascular accident, Onset Age: 23 Patient's mother is Father Family history of heart disease in male family member before age 55, Onset Age: 42 Patient's father is Sibling Patient's brother is in good health Other Family history of arthritis Family history of cardiovascular disease Social History Social History Social History: Smoking packs per day: 1.5 Smoking cigarettes per day: 30.0 Years smoked: 41 Smoking pack-years: 61.50 Smoking status: Current every day smoker Tobacco type: cigarettes Second hand tobacco smoke exposure: Yes Alcohol intake: never Substance use: never Substance use type: does not use Living arrangements: with family Gender identity (if verbalized by the patient): Male Sexual Orientation (if Verbalized by the Patient): Straight or Heterosexual Spiritual care concerns: No Meds Home Medications and Allergies Home Medications Medication Instructions Recorded Confirmed Type aspirin 81 mg chewable tablet 81 mg PO DAILY #30 tabs 08/05/20 04/07/22 Rx (Children's Aspirin) rosuvastatin 20 mg tablet 20 mg PO DAILY #30 tabs 08/05/20 04/07/22 Rx clopidogrel 75 mg tablet 75 mg PO DAILY 09/14/21 04/13/22 History azelastine 205.5 mcg (0.15 %) 1 spray intranasal DAILY #30 mL 02/09/22 04/07/22 Rx nasal spray metoprolol tartrate 25 mg tablet 25 mg PO DAILY 04/07/22 04/07/22 History Allergies Allergy/AdvReac Type Severity Reaction Status Date / Time No Known Allergies Allergy Unknown Verified 04/13/22 09:02 Vital Signs Vital Signs - 24 hr 04/13/22 09:03 Temperature 98.1 F Pulse Rate 76 Respiratory Rate 20 Blood Pressure 112/74 Pulse Oximetry 100 Oxygen Delivery Room Air Exam Const: General: comfortable and no acute distress HENMT: General nose exam: Normal nares present Eyes: General: appearance normal, both eyes and all related structures Neck: Neck: no JVD Resp: Auscultation: clear to auscultation bilaterally Cardio: Rate: regular rate Rhythm: regular rhythm GI: Inspection: non-distended GI Palp: Yes Soft to palpation Skin: General skin exam: normal color Neuro: General: gait normal Speech: normal speech Extrem: General: normal to inspection Psych: Mental Status: mental status grossly normal Assessment and Plan Assessment and plan (1) [address]
[2022-04-13 10:01] VITALS: BP 111/74; PULSE 65; RESP 16; O2SAT 95
[2022-04-13 10:11] VITALS: BP 117/80; PULSE 70; RESP 26; O2SAT 94
[2022-04-13 10:21] VITALS: BP 127/83; PULSE 62; RESP 18; O2SAT 98
== END 2022-04-13 10:29 | disposition home or self-care (01) ==
PROVIDERS: PCP Family Medicine; Visit Provider Internal Medicine Gastroenterology
PROC: 0DJD8ZZ Inspection of Lower Intestinal Tract, Via Natural or Artificial Opening Endoscopic (ICD-10-PCS; CPT 45378; principal; 2022-04-13 10:30)
DX: Z12.11 Encounter for screening for malignant neoplasm of colon (principal); K57.30 Diverticulosis of large intestine without perforation or abscess without bleeding; K63.5 Polyp of colon; K64.8 Other hemorrhoids; J43.9 Emphysema, unspecified; F17.210 Nicotine dependence, cigarettes, uncomplicated; E66.9 Obesity, unspecified; Z68.31 Body mass index [BMI] 31.0-31.9, adult; Z79.02 Long term (current) use of antithrombotics/antiplatelets; Z79.82 Long term (current) use of aspirin
CPT/HCPCS: 45385; 88305; J2704; J7120

== ENCOUNTER 2022-08-05 07:00 | Outpatient (NON) | payer BC, SELFPAY | END 2022-08-05 07:01 | disposition home or self-care (01) | PROVIDERS: PCP Family Medicine; Visit Provider Nurse Practitioner | DX: D22.39 Melanocytic nevi of other parts of face (principal) | CPT/HCPCS: 88305 ==

== ENCOUNTER 2023-02-03 09:00 | Outpatient (NON) | payer BC, SELFPAY | END 2023-02-03 09:01 | disposition home or self-care (01) | LOC: ANHLAB 02-04 11:00 | PROVIDERS: PCP Family Medicine; Visit Provider Nurse Practitioner | DX: D49.2 Neoplasm of unspecified behavior of bone, soft tissue, and skin (principal); L81.2 Freckles; L81.4 Other melanin hyperpigmentation | CPT/HCPCS: 88305 ==

== ENCOUNTER 2023-03-03 10:49 | Outpatient (CLI) | payer BC, SELFPAY ==
--- NOTE | ~2023-03-03 | CT_ITS ---
EXAMINATION: CT lung screening DATE: 03/03/2023 11:05 INDICATION: History of nicotine dependence. TECHNIQUE: Computed tomography (CT) of the chest was performed without intravenous contrast. The dose -length product was 235.36 mGy-cm. Automated exposure control and iterative reconstruction technique were employed. COMPARISON: CT dated 02/19/2022 FINDINGS: There is eventration of the right diaphragm posteriorly. Mildly enlarged mediastinal lymph nodes, likely reactive, unchanged. No significant pleural or pericardial effusion. There is emphysema . No endobronchial lesions. No pneumothorax. No endobronchial lesions. There are mild chronic interst itial infiltrates of the lung periphery. Stable pleural-based right upper lobe nodule measuring 7 mm. New there is a new 3 mm right upper lobe nodule, image 58. Stable 3 mm left upper lobe nodule, image 72. 3 mm right upper lobe nodule, image 37. IMPRESSION: 1. Lung-RADS category 2: Benign appearance or behavior. Continue annual screening with noncontrast lo w-dose chest CT in 12 months. Reviewed, dictated and finalized at location L. IMPRESSION: 1. Lung-RADS category 2: Benign appearance or behavior. Continue annual screeni ng with noncontrast low-dose chest CT in 12 months.
== END 2023-03-03 10:50 | disposition home or self-care (01) ==
PROVIDERS: PCP Family Medicine; Visit Provider Physician Assistant
DX: Z12.2 Encounter for screening for malignant neoplasm of respiratory organs (principal); Z87.891 Personal history of nicotine dependence
CPT/HCPCS: 71271

== ENCOUNTER 2023-03-16 07:57 | Outpatient (CLI) | payer BC, SELFPAY ==
--- NOTE | 2023-03-16 08:06 | ECG_ITS ---
Measurements Intervals [place] Rate: 54 P: 9 NM: 159 QRS: 44 QRSD: 106 T: 1 QT: 404 QTc: 383 Interpretive Statements SINUS BRADYCARDIA DELAYED PRECORDIAL R/S TRANSITION CONSIDER INFERIOR INFARCT, AGE INDETERMINATE ABNORMAL ECG COMPARED TO ECG 08/04/2020 06:55:08 SINUS BRADYCARDIA NOW PRESENT Electronically Signed On 03-16-2023 9:43:01 CDT by Hernán He D.O.
== END 2023-03-16 07:58 | disposition home or self-care (01) ==
LOC: ANHSURGERY 08:02
PROVIDERS: PCP Family Medicine; Visit Provider Surgery
DX: K43.9 Ventral hernia without obstruction or gangrene (principal); I10 Essential (primary) hypertension; Z01.818 Encounter for other preprocedural examination
CPT/HCPCS: 36415; 86850; 86900; 86901; 93005

== ENCOUNTER 2023-03-22 01:18 | Day surgery (SDC) | payer BC, SELFPAY ==
[2023-03-09 15:45] VITALS: BMI 32.2
--- NOTE | 2023-03-09 16:12 | PC.NURSE ---
Report to the Outpatient Waiting Room, entrance under the green pavilion located off [facility], at time __6:00AM on date __03/22/23 . Planned Procedure Time: ___7:30AM . Time changes happen often and if your time is changed the preop area will call you the afternoon before. - You and your visitor will be asked to self-screen and do not enter if you have any COVID symptoms. - A mask is optional within the hospital at this time. Patients may have clear liquids (water, carbonated beverages, clear teas, apple juice) until 3 hours prior to surgery with a maximum of 20 ounces. - No food from midnight until time of surgeryd. Take the following medications with a SIP of water the morning of surgery: ___METOPROLOL DO NOT STOP ANY OF YOUR OTHER PRESCRIPTION MEDICATIONS PRIOR TO SURGERY ?EXCEPT THE FOLLOWING Medications to discontinue per physician __HOLD PLAVIX 7 DAYS PRE-OP Date to take last dose___03/15/23 Please no make-up, nail syriac, hairspray, perfume, deodorant, or body powder the day of surgery. No jewelry (including any body piercings) or valuables the day of surgery, leave them at home. Please take a shower or bath the night before, or the morning of, surgery with an antibacterial soap. Wear comfortable, loose fitting clothing. Children are encouraged to wear pajamas. - Jewelry must be removed prior to entering the operating room. Rings and piercings that are not removed may be cut off. - The hospital will not accept responsibility for valuables. - Please leave all valuables, including medications, at home the day of surgery. If you are going home after surgery, a licensed regional intermodal truck driver must drive you home. - NO public transportation without another adult if you receive anesthesia. - We recommend that an adult stay with you for 24 hours following discharge. - We also recommend that you do not drive, make important decision, drink alcoholic beverages, or take any drugs that were not prescribed by your health care provider for at least 24 hours after your discharge time. Follow any additional instructions given to you from your surgeon. HIBICLENS SHOWER MORNING OF SURGERY If you or anyone in your household have experienced Covid symptoms in the past week, please notify your surgeon or the nurse liaison at the phone number below for possible testing. Telephone instructions given to ___PATIENT and asked if any additional questions and then verbalized understanding. Patient advised to call surgeon office or pre surgery nurse liaison [phone] if any additional questions.
[2023-03-22] VITALS (9 sets, daily range): BP systolic 112–146; BP diastolic 68–83; PULSE 62–82; RESP 13–20; TEMP 36.6; O2SAT 90–100; BMI 31.6
[2023-03-22] MEDS: LACTATED RINGERS 1,000 ML 30 ML IV CONT ×2 (06:20→10:33)
[2023-03-22] MEDS: KETOROLAC 15 MG/ML VIAL (*BKC) IV PUSH ×2 (06:28→10:12)
[2023-03-22] MEDS: ACETAMINOPHEN 500 MG TABLET 1000 MG PO (06:28)
--- NOTE | 2023-03-22 07:07 | WPDANESEPPF ---
Anes - Initial Pre Proc Eval Procedure: Operation Date: 03/22/23 07:30 Proposed Procedures p Robotic Assisted Laparoscopic Extended Total Extraperitoneal Ventral Hernia Repair with Mesh, Possible Open - Justin Alvarado MD Date/Time: 03/22/23 07:07 Surgeon: Justin Alvarado MD Pre Op Diagnosis: Reducible Periumbilical Ventral Hernia Patient Data Age: 62 Gender: M Height: 1.88 m Weight: 112 kg Last Vital Signs Temp 36.6 C 03/22/23 06:05 Pulse 62 03/22/23 06:05 Resp 14 03/22/23 06:05 BP 126/79 03/22/23 06:05 Pulse Ox 95 03/22/23 06:05 O2 Del Method Room Air 03/22/23 06:05 Allergies Allergy/AdvReac Type Severity Reaction Status Date / Time No Known Allergies Allergy Unknown Verified 03/22/23 06:15 Home Medications Medication Instructions Recorded Confirmed Type aspirin 81 mg chewable tablet 81 mg PO DAILY #30 tabs 08/05/20 03/09/23 Rx (Children's Aspirin) rosuvastatin 20 mg tablet 20 mg PO DAILY #30 tabs 08/05/20 03/09/23 Rx clopidogrel 75 mg tablet 75 mg PO DAILY 09/14/21 03/22/23 History metoprolol tartrate 25 mg tablet 25 mg PO QAM 04/07/22 03/22/23 History Patient hx anesthesia problems: none Family hx anesthesia problems: none Results Review: All pre-operative results and documents have been reviewed as part of the pre-operative evaluation. [facility] Past Medical History Medical History COPD (chronic obstructive pulmonary disease) Emphysema of lung Low HDL (under 40) Skin cancer Tobacco dependence Family History Family History Mother Cerebrovascular accident, Onset Age: 23 Patient's mother is Father Family history of heart disease in male family member before age 55, Onset Age: 42 Patient's father is Sibling Patient's brother is in good health Other Family history of arthritis Family history of cardiovascular disease Social History Social History Social History: Smoking packs per day: 1 Smoking cigarettes per day: 20.0 Years smoked: 47 Smoking pack-years: 47.00 Smoking status: Current every day smoker Tobacco type: cigarettes Second hand tobacco smoke exposure: Yes Alcohol intake: never Substance use: never Substance use type: does not use Lack of Transportation: No Lack of Food: Never True Current Housing: I Have Housing Concerned About Future Housing: No Difficulty Paying Gas/Electric Bills: No Difficulty Paying for Meds: No Currently Unemployed: YES Education: Decline to Answer Difficulty w/ Childcare or Family Care: No Living arrangements: with family Additional living arrangements comments: Occupation/Education: retired Gender identity (if verbalized by the patient): Male Sexual Orientation (if Verbalized by the Patient): Straight or Heterosexual Spiritual care concerns: No Anes - Eval Final PreProcedure Day of Procedure 03/22/23 07:07 Patient weight: obese Heart: regular rate and rhythm Lungs: decreased breath sounds Airway: Mallampati scale class II Neurological: alert and oriented Last oral intake: >/= 8 hours ASA classification: III Emergent: no Anesthetic plan: proceed Anesthesia type and monitoring: general ETT and standard monitoring Results Review: All pre-operative results and documents have been reviewed as part of the pre-operative evaluation. Informed Consent: The patient's anesthetic plan and its attendant risks and benefits were discussed with the patient/family/POA. Questions were solicited and answers provided to the satisfaction of the patient/family/POA.
--- NOTE | 2023-03-22 07:13 | WPDHPUPDATE1 ---
History and Physical Update Update Date/Time: 03/22/23 07:13 History and Physical has been reviewed, including an updated exam of the patient. There are NO changes in the patient's condition. Risks, benefits, and alternatives have been discussed and questions answered. Patient agrees to proceed with procedure.
[2023-03-22] MEDS: ceFAZolin 2 GM/D5W 50 ML 2 GM/50 ML BAG IVPB (07:30)
[2023-03-22] MEDS: BUPivacaine HCL 0.5% PF 30 ML VIAL INFILTRATE (08:06)
--- NOTE | 2023-03-22 10:29 | PM.OP ---
Procedure Note - Brief Procedure Note - Brief Date of procedure: 03/22/23 Reducible Periumbilical Ventral Hernia Post-op diagnosis: Same Procedure performed: Robotic assisted laparoscopic periumbilical ventral hernia repair (eTEP) with Bard soft mesh. Surgeon: Justin Alvarado MD Utility Sales And Service Manager: Ismael GARCIA Anesthesia: GETA Implants: Bard soft mesh [id number] Estimated blood loss (mL): 20 Drains: No Packing: No Pathology: None sent Complications: No immediate complications Condition: Stable Disposition: PACU
[2023-03-22] MEDS: fentaNYL CITRATE INJ (*CRX) 100 MCG/2 ML VIAL 25 MCG IV PUSH ×6 (10:36→11:25)
--- NOTE | 2023-03-24 09:30 | W.PM.PROC2 ---
Procedure Note - Detailed Date of Procedure 03/22/23 Pre-op Diagnosis Reducible Periumbilical Ventral Hernia Post-op Diagnosis Same Procedure Performed Robotic assisted laparoscopic eTEP periumbilical ventral hernia repair with Bard soft mesh. Surgeon Justin Alvarado MD All Source Analyst RADHA Romero Anesthesia General Indications Patient is a 8-year-old gentleman who presented with a periumbilical bulge which was enlarging causing has some discomfort. Appeared to have a reducible periumbilical ventral hernia with a defect measuring about 2cm. He presents now for robotic assisted laparoscopic eTEP periumbilical ventral hernia repair with Bard soft mesh. Findings Fascial defect 2cm with reducible preperitoneal fat within the hernia sac. No other fascial defects. Description of Procedure After informed consent was obtained patient brought to the operating room was placed supine position and then general endotracheal anesthesia was administered. A Weiss catheter was placed decompress the bladder. The abdomen was then prepped and draped in usual sterile fashion. A time-out was then performed correctly identifying the patient as well as procedure to be performed. He was given Ancef for perioperative IV antibiotics. I then proceeded to gain access into the abdomen by placing a 5mm Optiview port just at the left costal margin. The Optiview port advanced through the subcutaneous tissues and just through the anterior rectus fascia into the fibers of the left rectus muscle and then the port skived inferiorly until I identified the posterior rectus fascia. I then utilized the camera port to bluntly continue dissecting out the posterior rectus space all the while insufflating. I continued operating the posterior rectus fascia and muscle fibers bluntly and identified the linea alba medially and the similar line laterally. Neurovascular perforators near the similar line were preserved without injury. Once I had enough space to place my additional robotic ports into the retrorectus space I did this all under direct visualization. The Telloi robot was then brought to the patient's bedside and the robotic arms were docked to the robotic ports. I then scrubbed out the procedure and then continued dissection of the retrorectus space robotically. When I got down to the left lower quadrant of the abdomen the [facility] Janene vessels were identified and they were dissected off of the posterior rectus sheath without any bleeding. I dissected down to the space of Retzius. At this point I then proceeded to incised the left posterior rectus fascia about 1cm lateral to the linea alba. This was done for the complete length of the dissected retrorectus space. Great care was taken not to put any holes in the peritoneum. Once this was done I then started my crossover superiorly underneath the tissue from the falciform ligament. The preperitoneal fat area was retracted and dissected inferiorly until identified muscle fibers on the contralateral side from the rectus muscle. The hernia sac was reduced out of the hernia defect and a contained only a small amount of preperitoneal fat. The defect measured about 2cm in diameter. There was no hole made in the hernia sac. I then proceeded to incise the posterior rectus fascia of the contralateral side. This is done with sharp scissor electrocautery. The right retrorectus space was exposed I dissected laterally until I encountered the neurovascular bundles and perforators at the lateral edge of the right rectus muscle. I continue my dissection inferiorly and identified the right inferior epigastric vessel and this was dissected so that stayed with the rectus muscle. Once I had this full space dissected out I measured and a piece of Bard soft mesh measuring 27cm in length by 18cm in width was cut from a larger piece of Bard soft mesh for the space. I then proceeded to close the periumbilical ventral fascial defect utilizing a 0
== END 2023-03-22 12:35 | disposition home or self-care (01) ==
PROVIDERS: PCP Family Medicine; Visit Provider Surgery
PROC: (CPT 49591; principal; 2023-03-22 07:30)
DX: K43.9 Ventral hernia without obstruction or gangrene (principal); J43.9 Emphysema, unspecified; Z79.82 Long term (current) use of aspirin; Z79.02 Long term (current) use of antithrombotics/antiplatelets; F17.210 Nicotine dependence, cigarettes, uncomplicated; E66.9 Obesity, unspecified; Z68.31 Body mass index [BMI] 31.0-31.9, adult
CPT/HCPCS: 49591; S2900; A9270; C1781; C9290; J0330; J0690; J1100; J1170; J1885; J2250; J2405; J2704; J3010; J7120

== ENCOUNTER 2024-03-15 06:58 | Outpatient (CLI) | payer BC, SELFPAY ==
--- NOTE | ~2024-03-15 | CT_ITS ---
CT Scan of the Chest without Contrast: Clinical Indication: Lung cancer screening, tobacco use Technique: Contiguous sections were acquired throughout the chest without intravenous contrast. Dose reduction technique was used on this scan by utilizing automated exposure control and iterative recon struction technique. The dose-length product (DLP) was 238.92 mGy-cm. COMPARISON: 03/03/2023 Findings: There is no evidence of any significant mediastinal, hilar or axillary lymphadenopathy. The mediastin al soft tissues appear normal. There is no evidence of pleural or pericardial effusion. There are multiple new subcentimeter pulmonary nodules, predominantly peripherally, most numerous in the left lower lobe and right upper lobe, though also present in the left upper lobe and right lower lobe. Largest individual nodule is 8 mm in diameter. Mild emphysema present. Images through the upper abdomen reveal no abnormalities. Impression: Lung RADS 4A: Suspicious. 3 month follow-up CT scan recommended. There are numerous new subcentimeter pulmonary nodules throughout the lungs, which could reflect infectious/inflammatory disease versus p ossibly metastatic disease. Correlate clinically. Consider additional workup at this time for any pos sible underlying primary lesion as indicated. Reviewed, dictated and finalized at location . Impression: Lung RADS 4A: Suspicious. 3 month follow-up CT scan recommended. There are nume palomo new subcentimeter pulmonary nodules throughout the lungs, which could refl ect infectious/inflammatory disease versus possibly metastatic disease. Correla te clinically. Consider additional workup at this time for any possible underly ing primary lesion as indicated.
== END 2024-03-15 06:59 | disposition home or self-care (01) ==
PROVIDERS: PCP Family Medicine; Visit Provider Physician Assistant
DX: Z12.2 Encounter for screening for malignant neoplasm of respiratory organs (principal); Z72.0 Tobacco use; R91.8 Other nonspecific abnormal finding of lung field
CPT/HCPCS: 71271

== ENCOUNTER 2024-06-20 14:36 | Outpatient (CLI) | payer BC, SELFPAY ==
--- NOTE | ~2024-06-20 | CT_ITS ---
EXAMINATION:CT diagnostic chest wo con DATE: 06/20/2024 14:53 INDICATION: Other nonspecific abnormal finding of lung field. TECHNIQUE: Computed tomography (CT) of the chest was performed without intravenous contrast. Automate d exposure control and iterative reconstruction technique were employed. The dose-length product (DLP ) was 488.89 mGy-cm. COMPARISON: Chest CT 03/15/2024, 03/03/23 FINDINGS: There is moderate emphysema. There is a right posterior diaphragmatic hernia containing fat . There are a few scattered nodules in the lungs measuring up to 6 mm, stable from 03/15/24. There is a chronic 10 mm pleural-based nodule in right upper lobe. No pleural effusion. The heart size is norm al. There are coronary artery calcifications. No pericardial effusion. There is mild thoracic spondyl osis. IMPRESSION: 1. Lung-RADS category 3: Probably benign. Further evaluation is recommended with noncontrast low-dose chest CT in 6 months. Reviewed, dictated and finalized at location A. IMPRESSION: 1. Lung-RADS category 3: Probably benign. Further evaluation is recommended wit h noncontrast low-dose chest CT in 6 months.
== END 2024-06-20 14:37 | disposition home or self-care (01) ==
LOC: ANHIMG 14:38
PROVIDERS: PCP Family Medicine; Visit Provider Family Medicine
DX: R91.8 Other nonspecific abnormal finding of lung field (principal)
CPT/HCPCS: 71250

== ENCOUNTER 2025-03-15 10:10 | Outpatient (CLI) | payer BC, SELFPAY ==
--- NOTE | ~2025-03-15 | XR_ITS ---
3 VIEWS LUMBAR SPINE Ordering provider: Jossy Baer PA-C History: . M54.50 - Low back pain, unspecified . Comparison: None. FINDINGS: VERTEBRAL BODIES: No visible fracture or subluxation. Degenerative changes of the spine. DISK SPACES: Normal. SOFT TISSUES: Normal. Bilateral sacroiliacs. IMPRESSION: No acute osseous abnormality lumbar spine. Reviewed, dictated and finalized at location A.
--- NOTE | ~2025-03-15 | CT_ITS ---
CT Scan of the Chest without Contrast: Clinical Indication: Lung nodule Technique: Contiguous sections were acquired throughout the chest without intravenous contrast. Dose reduction technique was used on this scan by utilizing automated exposure control and iterative recon struction technique. The dose-length product (DLP) was 592.90 mGy-cm. COMPARISON: 06/20/2024 Findings: There is no evidence of any significant mediastinal, hilar or axillary lymphadenopathy. The mediastin al soft tissues appear normal. There is no evidence of pleural or pericardial effusion. There is moderate to advanced emphysema with associated areas of mild chronic interstitial change. No suspicious pulmonary nodule identified. Images through the upper abdomen reveal no abnormalities. Impression: Emphysema and chronic interstitial change, as noted above. No suspicious pulmonary nodule. Reviewed, dictated and finalized at [facility]. Impression: Emphysema and chronic interstitial change, as noted above. No suspicious pulmon abril nodule.
== END 2025-03-15 10:11 | disposition home or self-care (01) ==
LOC: MICIMG 10:12
PROVIDERS: PCP Family Medicine; Visit Provider Physician Assistant
DX: R91.1 Solitary pulmonary nodule (principal); J43.9 Emphysema, unspecified; J84.9 Interstitial pulmonary disease, unspecified
CPT/HCPCS: 71250; 72100

== ENCOUNTER 2025-08-16 08:33 | Outpatient (CLI) | payer BC, SELFPAY ==
--- NOTE | ~2025-08-16 | MR_ITS ---
EXAMINATION: MR lumbar spine wo con DATE: 08/16/2025 09:08 INDICATION: Radiculopathy, lumbar region. Low back pain radiating down both legs. TECHNIQUE: Magnetic resonance imaging (MRI) of the lumbar spine was performed without intravenous contrast. Sequences included sagittal T2-weighted FSE, sagittal T2-weighted FS FSE, sagittal T1-weighted FSE, and axial T2-weighted FSE. COMPARISON: Lumbar spine radiographs 03/15/25 FINDINGS: Alignment is normal. Vertebral body heights are normal. There is mildly decreased disc height at L4-L5. The distal spinal cord signal intensity is normal. The conus medullaris is at L1. The following disc levels are specifically discussed: L1-L2: The disc does not extend beyond the endplate margin. There is mild bilateral facet joint osteoarthritis. There is no neural foraminal stenosis. There is no central canal stenosis. L2-L3: The disc is bulging. There is mild bilateral facet joint osteoarthritis. There is mild bilateral neural foraminal stenosis. There is no central canal stenosis. L3-L4: The disc is bulging and has an annular fissure. There is mild bilateral facet joint osteoarthritis. There is mild bilateral neural foraminal stenosis. There is mild central canal stenosis. L4-L5: The disc is bulging and has an annular fissure. There is moderate right and severe left facet joint osteoarthritis. There is mild bilateral neural foraminal stenosis. There is mild central canal stenosis. L5-S1: The disc is bulging and has an annular fissure. There is moderate bilateral facet joint osteoarthritis. There is mild bilateral neural foraminal stenosis. There is mild central canal stenosis. IMPRESSION: 1. Mild lumbar spondylosis. Reviewed, dictated and finalized at location E. IMPRESSION: 1. Mild lumbar spondylosis.
== END 2025-08-16 08:34 | disposition home or self-care (01) ==
LOC: MICIMG 08:34
PROVIDERS: PCP Family Medicine; Visit Provider Physician Assistant
DX: M47.816 Spondylosis without myelopathy or radiculopathy, lumbar region (principal)
CPT/HCPCS: 72148